=== PATIENT | female | born 1990 | race Caucasian/White ===

== ENCOUNTER 2017-08-03 00:02 | Emergency (ER) | payer MEDICAID ==
--- NOTE | 2017-08-03 00:12 | EDPHY ---
H & P HPI/ROS: HPI CHIEF COMPLAINT: Shortness of breath HISTORY OF PRESENT ILLNESS: This patient is a 27-year-old female she presents emergency room shortness of breath. She states over the past 10-14 days she has had shortness of breath with cough productive in nature wheezing. She tells me that she has chronic bronchitis. She smokes a half pack per day. Additionally she reports she does IV methamphetamine and heroin. She presents emergency room by ambulance for shortness of breath. Complaining worsening cough and wheezing. Can't catch her breath. Dyspnea on exertion. She denies any significant pain. No history of PE or DVT. No pleuritic pain. Does have a control implant. Past Medical History: Chronic bronchitis, chronic tobacco abuse Past Surgical History: No recent surgery Social History: Polysubstance abuse IV heroin IV meth Family History: Noncontributory ROS REVIEW OF SYSTEMS: A comprehensive 10 point review of systems is otherwise negative aside from elements mentioned in the history of present illness. Exam Constitutional appears nontoxic, triage nursing summary reviewed, vital signs reviewed, awake/alert. Noted to be tachycardic. Eyes normal conjunctivae and sclera, EOMI, PERRLA. HENT normal inspection, atraumatic, moist mucus membranes, no epistaxis, neck supple/ no meningismus, no raccoon eyes. Respiratory faint wheezing bilaterally, decreased breath sounds bilaterally, bronchitic sounding cough Cardiovascular I do not appreciate a murmur, rate normal, regular rhythm, no murmur, no edema, distal pulses normal. Gastrointestinal soft, non-tender, no rebound, no guarding, normal bowel sounds, no distension, no pulsatile mass. Genitourinary no CVA tenderness. Musculoskeletal no midline vertebral tenderness, full range of motion, no calf swelling, no tenderness of extremities, no meningismus, good pulses, neurovascularly intact. Skin pink, warm, & dry, no rash, skin atraumatic. Neurologic awake, alert and oriented x 3, AAOx3, moves all 4 extremities equally, motor intact, sensory intact, CN II-XII intact, normal cerebellar, normal vision, normal speech. Psychiatric normal mood/affect. Heme/Lymph/Immune no lymphadenopathy. Differential Diagnosis: Includes but is not limited to acute bronchitis, acute on chronic bronchitis, reactive airway disease, asthma, pneumonia, pulmonary embolism, pneumothorax Medical Decision Making: Plan for this patient x-ray, IV established with IV fluid bolus, check basic blood work, D-dimer and troponin, EKG. DuoNeb breathing treatment prednisone 60 mg and re-evaluate. Re-evaluation: EKG interpretation by me on record in [employer] system. Impression time of EKG 0030: This is sinus tachycardia rate of 116. There is no acute ischemic changes. No ST elevation ST depression significant T-wave abnormalities. No prolonged intervals. No evidence of cardiac arrhythmia. 0311AM: Re-examination at this time patient is resting comfortably. No acute distress. Blood pressure 104/60. Heart rate 102. Pulse ox 93%. I did re- evaluate her sister lungs clear lungs good air movement. Resting comfortably. X-ray has been reviewed no acute cardiopulmonary disease. Feeling better after DuoNeb breathing treatment. Blood work has been reviewed. Negative D-dimer. No pleuritic pain. Lower to go home with steroids for 5 days and albuterol inhaler. She understands return emergency room if she has worsening symptoms. Return precautions given. Source: Patient, EMS - Medical/Surgical History Hx Asthma: No Hx Chronic Respiratory Disease: No Hx Diabetes: No Hx Cardiac Disease: No Hx Renal Disease: No Hx Cirrhosis: No Hx Alcoholism: No Hx HIV/AIDS: No Hx Splenectomy or Spleen Trauma: No Other PMH: anxiety, scoliosis - Social History Smoking Status: Current every day smoker Constitutional: Initial Vital Signs Temperature (C) 36.9 C 08/03/17 00:20 Heart Rate 112 H 08/03/17 00:20 Respiratory Rate 28 H 08/03/17 00:20 Blood Pressure 128/88 H 08/03/17 00:20 O2 Sat (%) 98 08/03/17 00:20 O2 Delivery Mode Room Air Allergies/Adverse Reactions: No Known Allergies Allergy (Unverified 08/03/17 00:24) Home Medications: Medication Instructions Recorded GABAPENTIN 02/04/16 Zoloft 100mg (RX) 02/04/16 traZODONE 02/04/16 predniSONE 60 mg PO DAILY #15 tab 08/03/17 Medical Decision Making - Data Points Laboratory Results: Laboratory Results 08/03/17 00:24 08/03/17 00:24 08/03/17 08/03/17 08/03/17 02:45 00:24 00:24 WBC RBC Hgb Hct MCV MCH MCHC RDW Plt Count MPV Neut % (Auto) Lymph % (Auto) [place] % (Auto) Eos % (Auto) Baso % (Auto) Nucleat RBC Rel Count Absolute Neuts (auto) Absolute Lymphs (auto) Absolute Monos (auto) Absolute Eos (auto) Absolute Basos (auto) Absolute Nucleated RBC Immature Gran % Immature Gran # PT INR APTT D-Dimer Sodium 141 mEq/L mEq/L (134-144) Potassium 4.1 mEq/L mEq/L (3.5-5.2) Chloride 108 mEq/L mEq/L (97-110) Carbon Dioxide 21 mEq/l L mEq/l (22-31) Anion Gap 12 mEq/L mEq/L (8-16) BUN 13 mg/dL mg/dL (7-23) Creatinine 0.7 mg/dL mg/dL (0.6-1.0) Estimated GFR > 60 Glucose 119 mg/dL H mg/dL (70-100) Calcium 9.4 mg/dL mg/dL (8.5-10.4) Magnesium 1.8 mg/dL mg/dL (1.6-2.3) Total Bilirubin 0.3 mg/dL mg/dL (0.1-1.4) Conjugated Bilirubin 0.3 mg/dL mg/dL (0.0-0.5) Unconjugated Bilirubin 0.0 mg/dL mg/dL (0.0-1.1) AST 19 IU/L IU/L (14-46) ALT 26 IU/L IU/L (9-52) Alkaline Phosphatase 56 IU/L IU/L (38-126) Creatine Kinase 33 IU/L IU/L (0-156) CK-MB (CK-2) Fraction 0.77 ng/mL ng/mL (0.00-3.19) Troponin I < 0.012 ng/mL ng/mL (0.000-0.034) NT-Pro-B Natriuret Pep 89 pg/mL pg/mL (0-125) Total Protein 6.0 g/dL L g/dL (6.3-8.2) Albumin 3.4 g/dL L g/dL (3.5-5.0) Lipase 78 IU/L IU/L (23-300) Beta HCG, Qual NEGATIVE Urine Opiates Screen NON-NEGATIVE H (NEGATIVE) Urine Barbiturates NEGATIVE (NEGATIVE) Ur Phencyclidine Scrn NEGATIVE (NEGATIVE) Ur Amphetamine Screen NEGATIVE (NEGATIVE) U Benzodiazepines Scrn NEGATIVE (NEGATIVE) Urine Cocaine Screen NEGATIVE (NEGATIVE) U Marijuana (THC) Screen NON-NEGATIVE H (NEGATIVE) 08/03/17 08/03/17 00:24 00:24 WBC 9.96 10^3/uL H 10^3/uL (3.80-9.50) RBC 4.24 10^6/uL 10^6/uL (4.18-5.33) Hgb 13.3 g/dL g/dL (12.6-16.3) Hct 38.8 % % (38.0-47.0) MCV 91.5 fL fL (81.5-99.8) MCH 31.4 pg pg (27.9-34.1) MCHC 34.3 g/dL g/dL (32.4-36.7) RDW 12.1 % % (11.5-15.2) Plt Count 293 10^3/uL 10^3/uL (150-400) MPV 10.3 fL fL (8.7-11.7) Neut % (Auto) 61.6 % % (39.3-74.2) Lymph % (Auto) 24.5 % % (15.0-45.0) [place] % (Auto) 10.5 % % (4.5-13.0) Eos % (Auto) 2.1 % % (0.6-7.6) Baso % (Auto) 0.7 % % (0.3-1.7) Nucleat RBC Rel Count 0.0 % % (0.0-0.2) Absolute Neuts (auto) 6.13 10^3/uL 10^3/uL (1.70-6.50) Absolute Lymphs (auto) 2.44 10^3/uL 10^3/uL (1.00-3.00) Absolute Monos (auto) 1.05 10^3/uL H 10^3/uL (0.30-0.80) Absolute Eos (auto) 0.21 10^3/uL 10^3/uL (0.03-0.40) Absolute Basos (auto) 0.07 10^3/uL 10^3/uL (0.02-0.10) Absolute Nucleated RBC 0.00 10^3/uL 10^3/uL (0-0.01) Immature Gran % 0.6 % % (0.0-1.1) Immature Gran # 0.06 10^3/uL 10^3/uL (0.00-0.10) PT 13.5 SEC SEC (12.0-15.0) INR 1.04 (0.83-1.16) APTT 31.0 SEC SEC (23.0-38.0) D-Dimer 0.44 ug/mLFEU ug/mLFEU (0.00-0.50) Sodium Potassium Chloride Carbon Dioxide Anion Gap BUN Creatinine Estimated GFR Glucose Calcium Magnesium Total Bilirubin Conjugated Bilirubin Unconjugated Bilirubin AST ALT Alkaline Phosphatase Creatine Kinase CK-MB (CK-2) Fraction Troponin I NT-Pro-B Natriuret Pep Total Protein Albumin Lipase Beta HCG, Qual Urine Opiates Screen Urine Barbiturates Ur Phencyclidine Scrn Ur Amphetamine Screen U Benzodiazepines Scrn Urine Cocaine Screen U Marijuana (THC) Screen Medications Given: Discontinued Medications Sodium Chloride (Ns) 1,000 mls @ 0 mls/hr IV EDNOW ONE; Wide Open PRN Reason: Protocol Stop: 08/03/17 00:15 Last Admin: 08/03/17 00:28 Dose: 1,000 mls Sodium Chloride (Ns) 1,000 mls @ 0 mls/hr IV ONCE ONE PRN Reason: Wide Open Stop: 08/03/17 01:46 Last Admin: 08/03/17 02:08 Dose: 1,000 mls Prednisone (Prednisone) 60 mg PO EDNOW ONE Stop: 08/03/17 00:16 Last Admin: 08/03/17 00:29 Dose: 60 mg Departure - Departure Disposition: Home, Routine, Self-Care Clinical Impression: Acute bronchitis Qualifiers: Bronchitis organism: unspecified organism Qualified Code(s): J20.9 - Acute bronchitis, unspecified Condition: Good Instructions: Acute Bronchitis (ED) Additional Instructions: 1. Return emergency room if you have worsening symptoms includes worsening shortness of breath, pain fever vomiting questions or concerns. 2. Please do not smoke. Referrals: Patient,NotPresent [Unknown] - As per Instructions Prescriptions: predniSONE 60 mg PO DAILY #15 tab
[2017-08-03] MEDS ORDERED: NS 1,000 ML IV ONE ×2 (00:14→01:45)
[2017-08-03] MEDS ORDERED: predniSONE 20 MG TAB PO ONE (00:15)
--- NOTE | 2017-08-03 00:32 | CPEKG ---
Heart Rate: 116 RR Interval: 517 P-R Interval: 120 QRSD Interval: 74 QT Interval: 324 QTC Interval: 451 P [place]: 77 QRS [place]: 73 T Wave [place]: 49 EKG Severity - OTHERWISE NORMAL ECG - EKG Impression: SINUS TACHYCARDIA Electronically Signed By: Florentin Crenshaw 03-Aug-2017 07:35:51
[2017-08-03 00:51] LABS: INR 1.04 (0.83-1.16); PROTIME(PATIENT) 13.5 SEC (12.0-15.0)
[2017-08-03 00:56] LABS: % IMMATURE GRANULYOCYTES 0.6 % (0.0-1.1); ABSOLUTE IMMATURE GRANULOCYTES 0.06 10^3/uL (0.00-0.10); ADD DIFF? NO; ADD MORPH? NO; ADD SCAN? NO; ATYPICAL LYMPHOCYTE FLAG 10 (0-99); FRAGMENT RBC FLAG 0 (0-99); HEMATOCRIT 38.8 % (38.0-47.0); HEMOGLOBIN 13.3 g/dL (12.6-16.3); LEFT SHIFT FLG 10 (0-99); LIPEMIA HEMOLYSIS FLAG 90 (0-99); MEAN CELL HEMOGLOBIN 31.4 pg (27.9-34.1); MEAN CELL HEMOGLOBIN CONCENTR. 34.3 g/dL (32.4-36.7); MEAN CELL VOLUME 91.5 fL (81.5-99.8); MEAN PLATELET VOLUME 10.3 fL (8.7-11.7); PLATELET CLUMPS FLAG 0 (0-99); PLATELET COUNT 293 10^3/uL (150-400); RED BLOOD CELL COUNT 4.24 10^6/uL (4.18-5.33); RED CELL DISTRIBUTION WIDTH 12.1 % (11.5-15.2)
[2017-08-03 00:57] LABS: ALANINE AMINOTRANSFERASE 26 IU/L (9-52); ALBUMIN 3.4 g/dL (3.5-5.0); ALKALINE PHOSPHATASE 56 IU/L (38-126); ANION GAP 12 mEq/L (8-16); ASPARTATE AMINOTRANSFERASE 19 IU/L (14-46); BILIRUBIN,TOTAL 0.3 mg/dL (0.1-1.4); BILIRUBIN-CONJUGATED 0.3 mg/dL (0.0-0.5); CALCIUM 9.4 mg/dL (8.5-10.4); CARBON DIOXIDE 21 mEq/l (22-31); CHLORIDE 108 mEq/L (97-110); CREATININE 0.7 mg/dL (0.6-1.0); GLOMERULAR FILTRATION RATE > 60; GLUCOSE 119 mg/dL (70-100); MAGNESIUM 1.8 mg/dL (1.6-2.3); POTASSIUM 4.1 mEq/L (3.5-5.2); SODIUM 141 mEq/L (134-144)
[2017-08-03 01:09] LABS: CREATINE KINASE-MB FRACTION 0.77 ng/mL (0.00-3.19); TROPONIN I < 0.012 ng/mL (0.000-0.034)
[2017-08-03] MEDS ORDERED: ALBUTEROL INH PREPACK MDI TAKEHOME ONE (03:13)
[2017-08-03 03:32] VITALS: BP 120/77; PULSE 110; RESP 18; TEMP 98.2; O2SAT 92
== END 2017-08-03 03:30 | disposition home or self-care (01) ==
LOC: EDUNIT#
PROC: 3E0337Z Introduction of Electrolytic and Water Balance Substance into Peripheral Vein, Percutaneous Approach (ICD-10-PCS; principal; 2017-08-03)
DX: J20.9 Acute bronchitis, unspecified (principal); E86.9 Volume depletion, unspecified; F17.200 Nicotine dependence, unspecified, uncomplicated
CPT/HCPCS: 80305

== ENCOUNTER 2017-10-18 21:23 | Emergency (ER) | payer MEDICAID ==
--- NOTE | 2017-10-18 22:12 | EDPHY ---
H & P Stated Complaint: CRAMP TO CHEST WALL FOR A WHILE Time Seen by Provider: 10/18/17 21:59 HPI/ROS: HPI The patient presents with left-sided chest pain has been present for about 2 weeks, worse over the last 4 days and has been constant since yesterday. She describes a tightness and a twitching with spasm of her left chest, mostly anterior. This is worse with movement and relieved with rest. It is moderate in severity. It occasionally radiates to her neck. She has no associated shortness of breath or fever. She does not have any leg swelling. She uses the Nexplanon for control. She has had a mild cough for several months which she attributes to bronchitis. She has a half pack per day smoker. She denies any hemoptysis.. REVIEW OF SYSTEMS Constitutional: No fever, no chills. Eyes: No discharge. ENT: No sore throat. Cardiovascular: Positive for chest pain, no palpitations. Respiratory: No cough, no shortness of breath. Gastrointestinal: No abdominal pain, no vomiting. Genitourinary: No hematuria. Musculoskeletal: No back pain. Skin: No rashes. Neurological: No headache. PMHx: Healthy Soc Hx: Smokes PHYSICAL General Appearance: Alert, no distress Eyes: Pupils equal and round no pallor or injection ENT, Mouth: Mucous membranes moist Respiratory: There are no retractions, there are inspiratory wheezes in the left lung field greater than the right lung field Cardiovascular: Regular rate and rhythm Gastrointestinal: Abdomen is soft and non-tender, no masses, bowel sounds normal Neurological: A&O, moves all extremities Skin: Warm and dry, no rashes Musculoskeletal: Neck is supple non tender Extremities: symmetrical, full range of motion Psychiatric: Patient is oriented X 3, there is no agitation Source: Patient Exam Limitations: No limitations - Personal History LMP (Females 10-55): Irregular Current Tetanus/Diphtheria Vaccine: Yes Current Tetanus Diphtheria and Acellular Pertussis (TDAP): Yes - Medical/Surgical History Hx Asthma: No Hx Chronic Respiratory Disease: No Hx Diabetes: No Hx Cardiac Disease: No Hx Renal Disease: No Hx Cirrhosis: No Hx Alcoholism: No Hx HIV/AIDS: No Hx Splenectomy or Spleen Trauma: No Other PMH: anxiety, scoliosis - Social History Smoking Status: Current every day smoker Constitutional: Initial Vital Signs Temperature (C) 36.9 C 10/18/17 21:27 Heart Rate 98 10/18/17 21:27 Respiratory Rate 18 10/18/17 21:27 Blood Pressure 128/102 H 10/18/17 21:27 O2 Sat (%) 100 10/18/17 21:27 O2 Delivery Mode Room Air Allergies/Adverse Reactions: No Known Allergies Allergy (Unverified 10/18/17 21:29) Home Medications: Medication Instructions Recorded Albuterol Hfa Anes Only [Proair 2 puffs IH QID 10/18/17 Hfa Icu (*)] Naproxen 375 mg PO BID #30 tablet 10/18/17 Medical Decision Making - Diagnostics EKG Interpretation: EKG: Complete interpretation has been separately recorded in the [employer] archive. Summary impression: Normal sinus rhythm Imaging Results: Imaging Impressions Chest X-Ray 10/18/17 22:08 Impression: No source for left chest discomfort identified. Imaging: I viewed and interpreted images myself Differential Diagnosis: This is a 27-year-old female, history of smoking cigarettes who presents with left-sided chest pain for the last several weeks becoming progressively worse. There is a mild cough associated with it. On arrival, she is mildly tachycardic. She did have wheezing in the left lung field greater than the right on exam. Differential diagnosis includes pulmonary embolism, ACS, pericarditis, chest wall strain, pneumothorax. Given her mild tachycardia on arrival, I will order a D-dimer on her. Plan for basic testing otherwise. In the emergency department, labs were unremarkable including D-dimer. EKG and chest x-ray were also normal. I suspect she may have costochondritis after her bronchitis. I have discussed this with her. I will prescribe her Naprosyn. I have given her follow-up information for the [facility]. - Data Points Laboratory Results: Laboratory Results 10/18/17 Unknown 10/18/17 Unknown 10/18/17 10/18/17 10/18/17 Unknown Unknown Unknown WBC 7.50 10^3/uL 10^3/uL (3.80-9.50) RBC 4.74 10^6/uL 10^6/uL (4.18-5.33) Hgb 15.0 g/dL g/dL (12.6-16.3) Hct 42.9 % % (38.0-47.0) MCV 90.5 fL fL (81.5-99.8) MCH 31.6 pg pg (27.9-34.1) MCHC 35.0 g/dL g/dL (32.4-36.7) RDW 12.9 % % (11.5-15.2) Plt Count 323 10^3/uL 10^3/uL (150-400) MPV 9.7 fL fL (8.7-11.7) Neut % (Auto) 39.2 % L % (39.3-74.2) Lymph % (Auto) 50.0 % H % (15.0-45.0) [place] % (Auto) 7.3 % % (4.5-13.0) Eos % (Auto) 2.1 % % (0.6-7.6) Baso % (Auto) 1.1 % % (0.3-1.7) Nucleat RBC Rel Count 0.0 % % (0.0-0.2) Absolute Neuts (auto) 2.94 10^3/uL 10^3/uL (1.70-6.50) Absolute Lymphs (auto) 3.75 10^3/uL H 10^3/uL (1.00-3.00) Absolute Monos (auto) 0.55 10^3/uL 10^3/uL (0.30-0.80) Absolute Eos (auto) 0.16 10^3/uL 10^3/uL (0.03-0.40) Absolute Basos (auto) 0.08 10^3/uL 10^3/uL (0.02-0.10) Absolute Nucleated RBC 0.00 10^3/uL 10^3/uL (0-0.01) Immature Gran % 0.3 % % (0.0-1.1) Immature Gran # 0.02 10^3/uL 10^3/uL (0.00-0.10) D-Dimer 0.28 ug/mLFEU ug/mLFEU (0.00-0.50) Sodium 141 mEq/L mEq/L (134-144) Potassium 4.0 mEq/L mEq/L (3.5-5.2) Chloride 107 mEq/L mEq/L (97-110) Carbon Dioxide 19 mEq/l L mEq/l (22-31) Anion Gap 15 mEq/L mEq/L (8-16) BUN 15 mg/dL mg/dL (7-23) Creatinine 1.0 mg/dL mg/dL (0.6-1.0) Estimated GFR > 60 Glucose 120 mg/dL H mg/dL (70-100) Calcium 9.9 mg/dL mg/dL (8.5-10.4) Specimen Hemolysis 111 Departure - Departure Disposition: Home, Routine, Self-Care Clinical Impression: Chest pain Qualifiers: Chest pain type: unspecified Qualified Code(s): R07.9 - Chest pain, unspecified Condition: Good Instructions: Pleurisy (ED) Additional Instructions: I recommend you take the medication as prescribed. [facility] unless your better in 1-2 days. Please stop smoking as this is not helping her pain or cough. Referrals: [facility],. [Clinic] - As per Instructions Prescriptions: Naproxen 375 mg PO BID #30 tablet
[2017-10-18 22:31] LABS: PLATELET COUNT 323 10^3/uL (150-400)
--- NOTE | 2017-10-18 22:34 | CPEKG ---
Heart Rate: 78 RR Interval: 769 P-R Interval: 144 QRSD Interval: 80 QT Interval: 372 QTC Interval: 424 P [place]: 72 QRS [place]: 77 T Wave [place]: 66 EKG Severity - NORMAL ECG - EKG Impression: SINUS RHYTHM Electronically Signed By: Deanna Loyola 20-Oct-2017 06:03:35
[2017-10-19 00:06] VITALS: BP 122/87; PULSE 90; RESP 16; TEMP 97.9; O2SAT 96
== END 2017-10-19 00:06 | disposition home or self-care (01) ==
DX: R07.9 Chest pain, unspecified (principal); F17.200 Nicotine dependence, unspecified, uncomplicated